=== PATIENT | male | born 1960 | race Caucasian/White ===

== ENCOUNTER 2019-07-04 20:57 | Emergency (ER) | payer MEDICAID ==
[~2019-07-04] VITALS: Ht 175.3 cm; Wt 114.3 kg
[2019-07-04 21:22] VITALS: BP 143/76; Ht 175.3 cm; Wt 114.3 kg
== END 2019-07-04 22:56 | disposition home or self-care (01) ==
LOC: ED 20:57
DX: S00.452A Superficial foreign body of left ear, initial encounter (principal); I10 Essential (primary) hypertension; W45.8XXA Other foreign body or object entering through skin, initial encounter; Y93.89 Activity, other specified; Y92.89 Other specified places as the place of occurrence of the external cause; Y99.8 Other external cause status
CPT/HCPCS: J2001

== ENCOUNTER 2019-07-14 12:11 | Emergency (ER) | payer MEDICAID ==
[~2019-07-14] VITALS: Ht 175.3 cm; Wt 106.1 kg
[2019-07-14 12:19] VITALS: Ht 175.3 cm; Wt 106.1 kg
[2019-07-14 14:45] VITALS: BP 157/94
== END 2019-07-14 14:45 | disposition home or self-care (01) ==
LOC: ED 12:11
DX: S16.1XXA Strain of muscle, fascia and tendon at neck level, initial encounter (principal); R51 Headache; I10 Essential (primary) hypertension; V48.0XXA Car driver injured in noncollision transport accident in nontraffic accident, initial encounter; Y93.I9 Activity, other involving external motion; Y92.488 Other paved roadways as the place of occurrence of the external cause; Y99.8 Other external cause status
CPT/HCPCS: J2270

== ENCOUNTER 2019-07-17 03:51 | Emergency (ER) | payer MEDICAID ==
[~2019-07-17] VITALS: Ht 175.3 cm; Wt 108.9 kg
[2019-07-17 03:56] VITALS: Ht 175.3 cm; Wt 108.9 kg
[2019-07-17 06:05] VITALS: BP 108/61
== END 2019-07-17 06:05 | disposition home or self-care (01) ==
LOC: ED 03:51
DX: S16.1XXA Strain of muscle, fascia and tendon at neck level, initial encounter (principal); M54.5 Low back pain; M54.6 Pain in thoracic spine; I10 Essential (primary) hypertension; V48.9XXA Unspecified car occupant injured in noncollision transport accident in traffic accident, initial encounter; Y93.89 Activity, other specified; Y92.488 Other paved roadways as the place of occurrence of the external cause; Y99.8 Other external cause status
CPT/HCPCS: J1885; J3010

== ENCOUNTER 2019-12-01 06:07 | Day surgery (SDC) | payer OTHER ==
[~2019-12-01] VITALS: Ht 175.3 cm; Wt 88.9 kg
[2019-12-01 07:00] VITALS: BP 142/88
[2019-12-01 13:50] VITALS: BP 119/75
== END 2019-12-01 11:05 | disposition home or self-care (01) ==
LOC: GI 06:07 → OR 10:00 → GI 10:00
DX: Z12.11 Encounter for screening for malignant neoplasm of colon (principal); D37.4 Neoplasm of uncertain behavior of colon; K57.30 Diverticulosis of large intestine without perforation or abscess without bleeding; K64.8 Other hemorrhoids; E78.00 Pure hypercholesterolemia, unspecified; Z91.013 Allergy to seafood; Z87.891 Personal history of nicotine dependence; Z79.899 Other long term (current) drug therapy; Z86.19 Personal history of other infectious and parasitic diseases; Z98.890 Other specified postprocedural states
CPT/HCPCS: 45378; J1200; J1610; J2250; J2310; J3010; J3490